=== PATIENT | female | born 1965 | race Caucasian/White ===

== ENCOUNTER 2024-08-31 09:30 | Emergency (ER) | payer OTHER, SELFPAY ==
[2024-08-31 09:37] VITALS: BP 138/84; PULSE 94; RESP 20; TEMP 37.4; O2SAT 100
--- NOTE | 2024-08-31 09:51 | ED.URI ---
HPI - URI/Sore Throat General Chief Complaint: Upper Respiratory Infection Stated Complaint: Cough/Sinus Pressure Time Seen by Provider: 08/31/24 09:51 History of Present Illness HPI Narrative: 59-year-old female presented for complaint of nasal congestion and sinus pressure, headache and postnasal drainage. Onset 2 weeks. Taking occasional NyQuil. Denies shortness of breath, wheezing nausea, vomiting, fevers or lethargy. Related Data Allergies Allergy/AdvReac Type Severity Reaction Status Date / Time No Known Allergies Allergy Verified 08/31/24 09:43 Review of Systems Review of Systems: ROS per HPI Exam Narrative: GENERAL: well-appearing, no acute distress. EYES: conjunctivae clear ENT: Mucous membranes moist. TMs pearly gutierrez with normal light reflex bilaterally; no tragal tenderness. Oropharynx erythematous without lesions. No drooling, no hoarseness, no trismus, uvula midline. No tripod positioning, hot potato voice, or soft palate swelling. NECK: Supple. No lymphadenopathy CHEST: Clear to auscultation, breath sounds equal. No respiratory distress, speaks in full sentences. HEART: Regular rate and rhythm. No murmur heard. SKIN: Warm, dry, no rash. NEURO: Alert and oriented x3. Course Course Emergency Course: Patient is aware of diagnosis, understands and agrees to treatment plan. Anticipatory guidance given. Patient agrees to follow-up as directed and is aware of reasons to seek care at the emergency department. Portions of this record may have been created with voice recognition software Level of Care: Express Care Visit Vital Signs Vital signs: Vital Signs Temperature 99.4 F 08/31/24 09:37 Pulse Rate 94 08/31/24 09:37 Respiratory Rate 20 08/31/24 09:37 Blood Pressure 138/84 08/31/24 09:37 Pulse Oximetry 100 08/31/24 09:37 Oxygen Delivery Room Air 08/31/24 09:37 Temperature 99.4 F 08/31/24 09:37 Pulse Rate 94 08/31/24 09:37 Respiratory Rate 20 08/31/24 09:37 Blood Pressure 138/84 08/31/24 09:37 Pulse Oximetry 100 08/31/24 09:37 Oxygen Delivery Room Air 08/31/24 09:37 MDM - URI/Sore Throat MDM Narrative Medical decision making narrative: discussed physical exam findings, Advise supportive treatments. Patient is appropriate for outpatient treatment and follow-up. Differential Diagnosis Differential diagnosis: Likely upper respiratory infection, sinusitis, viral infection, bronchitis and pharyngitis Discharge Plan Discharge Clinical Impression: Sinusitis Patient Disposition: Home, Self-Care Condition: Stable Instructions: Antibiotic Form, Rhinosinusitis (ED) Additional Instructions: take antibiotic as directed Recommend Flonase spray and Zyrtec (or Claritin/Kimberlyn) over the counter Cough syrup may cause drowsiness; avoid driving or take it at night time. Tylenol 1000mg every 8 hours as needed for pain Symptomatic treatment includes: rest, fluids, and increase humidity of the air at home. Follow up with your primary care provider in 1 week. Go to the ER for worsening symptoms or concerns. Patient Language: Hungarian Prescriptions: New amoxicillin-pot clavulanate 875-125 mg tablet 1 tablet PO Q12H 7 Days Qty: 14 0RF Follow-up/Referrals: Harms,Andrew Wills M.D. [Primary Care Provider] - Time of Disposition: 09:57
== END 2024-08-31 10:00 | disposition home or self-care (01) ==
PROVIDERS: Emergency Provider Nurse Practitioner Family; PCP Family Medicine
DX: J32.9 Chronic sinusitis, unspecified (principal)
CPT/HCPCS: 99203; G0463